=== PATIENT | female | born 1980 | race Two or more races ===

== ENCOUNTER 2025-07-24 12:45 | Emergency (ER) | payer SELFPAY ==
[~2025-07-24] VITALS: Ht 172.7 cm; Wt 68.2 kg
[2025-07-24 12:49] VITALS: TEMP 98.1
[2025-07-24 13:26] LABS: PLATELET COUNT (AUTO) 294 K/uL (150-450); RED BLOOD CELL COUNT(AUTO) 4.34 MIL/uL (4.00-5.20); RED CELL DISTRIBUTION WIDTH 12.5 % (11.5-14.5); WHITE BLOOD COUNT (AUTO) 6.5 K/uL (4.5-11.0)
[2025-07-24 13:34] LABS: CALCIUM, TOTAL 8.7 mg/dL (8.8-10.5); CREATININE 0.57 mg/dL (0.60-1.30); GLOMERULAR FILTR. RATE CALC > 60 mL/min (>60); GLUCOSE,RANDOM 78 mg/dL (70-110); SODIUM SERUM 139 mmol/L (136-145); UREA NITROGEN, BLOOD 9 mg/dL (7-18)
[2025-07-24 13:43] LABS: ASPARTATE AMINOTRANSFERASE 14 U/L (15-37); HCG,QUANTITATIVE < 1 mIU/mL (0-6); TOTAL PROTEIN, SERUM 7.5 g/dL (6.4-8.2)
[2025-07-24] MEDS: SODIUM CHLORIDE 0.9% 1,000 ML IV ONE (15:27)
[2025-07-24] MEDS: MAG HYDROX/ALUMINUM HYD/SIMETH 30 ML SUSPENSION UDCUP PO ONE (15:27)
[2025-07-24] MEDS: FAMOTIDINE 20 MG/2 ML VIAL IVP ONE (15:27)
[2025-07-24] MEDS: ONDANSETRON HCL 4 MG/2 ML VIAL IVP ONE (15:27)
[2025-07-24] MEDS: KETOROLAC TROMETHAMINE 30 MG/ML VIAL IVP ONE (15:27)
[2025-07-24] MEDS ORDERED: SODIUM CHLORIDE 0.9% 100 ML ONE (16:06)
[2025-07-24] MEDS ORDERED: IOHEXOL 300 MG/ML 100 ML VIAL ONE (16:06)
[2025-07-24] MEDS ORDERED: 0.9% SODIUM CHLORIDE 10 ML SYRINGE IVP ONE (16:06)
[2025-07-24 16:43] VITALS: BP 120/74; PULSE 56; RESP 18; O2SAT 100
== END 2025-07-24 19:05 | disposition still patient (30) ==
LOC: EMS 12:45
DX: R10.32 Left lower quadrant pain (principal); R19.5 Other fecal abnormalities; R35.0 Frequency of micturition; N89.8 Other specified noninflammatory disorders of vagina; R14.0 Abdominal distension (gaseous); F12.90 Cannabis use, unspecified, uncomplicated; K21.9 Gastro-esophageal reflux disease without esophagitis
CPT/HCPCS: 99285; 74177; 96374; 96375; 96361; 80048; 80076; 83690; 84702; 85025; 36415; J1885; J3490; J2405; J7030; J7050; Q9967